=== PATIENT | female | born 1955 | race African-American/Black ===

== ENCOUNTER 2021-11-12 20:43 | Inpatient (IN) | payer OTHER ==
[~2021-11-12] VITALS: Ht 172.7 cm; Wt 109.1 kg
[2021-11-12] MEDS ORDERED: ASPIRIN 81MG TABLET PO ONE (22:30)
[2021-11-12 23:04] LABS: BASOPHILS % 1.4 % (0.0-2.0); EOSINOPHILS % 0.4 % (0.0-5.0); HEMOGLOBIN. 8.1 g/dL (12.0-16.0); MEAN CORPUSCULAR HEMOGLOBIN 28.8 pg (28.0-32.0); MEAN CORPUSCULAR VOLUME 89.3 fL (81.0-99.0); MEAN PLATELET VOLUME 9.4 fl (7.4-10.4); MONOCYTES % 12.7 % (2.0-8.0); NEUTROPHILS % 77.5 % (40.0-76.0); PLATELET 190 x1000/uL (130-400); RED CELL DISTRIBUTION WIDTH 16.3 % (11.6-14.6)
[2021-11-12 23:12] LABS: CLARITY URINE CLEAR (CLEAR); COLOR URINE YELLOW (YELLOW); KETONES URINE NEGATIVE (NEGATIVE); LEUKOCYTE ESTERASE URINE TRACE (NEGATIVE); NITRITE URINE NEGATIVE (NEGATIVE); OCCULT BLOOD URINE 1+ (NEGATIVE); PROTEIN URINE NEGATIVE (NEGATIVE); SPECIFIC GRAVITY URINE 1.013 (1.005-1.030); UROBILINOGEN URINE 0.2 E.U./dL (0.2-1.0)
[2021-11-12 23:14] LABS: CHLORIDE 95 mEq/L (98-107)
[2021-11-13] MEDS ORDERED: CALCIUM GLUCONATE 100MG/ML 10ML VIAL IV NR (01:30)
[2021-11-13] MEDS ORDERED: MAGNESIUM 2 G PREMIX 50 ML IV NR (03:45)
[2021-11-13] MEDS ORDERED: HYDRALAZINE 20MG/ML VIAL IV PRN (07:15)
[2021-11-13] MEDS ORDERED: GUAIFENESIN 200MG/10ML SUGAR FREE UDC PO PRN (07:15)
[2021-11-13] MEDS ORDERED: DOCUSATE SODIUM 100MG CAPSULE PO PRN (07:15)
[2021-11-13] MEDS ORDERED: CLONIDINE 0.1MG TABLET PO PRN (07:15)
[2021-11-13] MEDS ORDERED: HYDROCODONE/ACETAMINOPHEN 5/325MG TABLET PO PRN (07:15)
[2021-11-13] MEDS ORDERED: MORPHINE SULFATE 2 MG/ML CPJ (NOT FOR IM USE) IV PRN (07:15)
[2021-11-13] MEDS ORDERED: MAGNESIUM/ALUMINUM HYDROXIDE/SIMETHICONE 30ML UDC PO PRN (07:15)
[2021-11-13] MEDS ORDERED: IPRATROPIUM/ALBUTEROL 0.5-3(2.5)MG/3ML NEB HHN PRN (07:15)
[2021-11-13] MEDS ORDERED: ONDANSETRON HCL 4MG/2ML INJ IV PRN (07:15)
[2021-11-13] MEDS ORDERED: DIPHENHYDRAMINE 50MG/ML VIAL IV PRN (07:15)
[2021-11-13] MEDS: ENOXAPARIN 30MG/0.3ML SYR SUBCUT SCH ×2 (09:00→18:29)
[2021-11-13] MEDS ORDERED: POTASSIUM CHLORIDE INJ 40 MEQ in DEXT 5% WATER 250 ML IV ONE (10:00)
[2021-11-13] MEDS ORDERED: NALOXONE HCL 0.4MG/ML VIAL IV PRN (13:00)
[2021-11-13 13:15] VITALS: BP 119/62
[2021-11-13] MEDS: ACETAMINOPHEN 325MG TABLET PO PRN ×2 (14:28→21:33)
[2021-11-13] MEDS: SODIUM CHLORIDE 0.9% INJ 3ML FLUSH IVF SCH ×2 (14:42→22:00)
[2021-11-13 16:00] VITALS: BP 135/64
[2021-11-13 17:04] LABS: CREATINE KINASE 125 IU/L (26-192); CREATINE KINASE MB FRACTION < 1.0 ng/mL (0.5-3.6)
[2021-11-13 17:05] LABS: T4 FREE 1.69 ng/dL (0.76-1.46)
[2021-11-13] MEDS ORDERED: ALBUTEROL 6.7GM HFA INHALER ORI SCH (18:00)
[2021-11-13] MEDS: DEXAMETHASONE 4MG TABLET PO SCH (18:30)
[2021-11-13 20:00] VITALS: BP 157/58
[2021-11-13] MEDS: TADALAFIL 20 MG PO SCH (21:00)
[2021-11-14] VITALS: BP 135/64
[2021-11-14 00:06] LABS: CREATINE KINASE 123 IU/L (26-192); CREATINE KINASE MB FRACTION < 1.0 ng/mL (0.5-3.6)
[2021-11-14] MEDS ORDERED: AMIODARONE HCL 900 MG in DEXT 5% WATER 482 ML IV PRN (02:00)
[2021-11-14 04:00] VITALS: BP 127/74
[2021-11-14 05:21] LABS: CHLORIDE 96 mEq/L (98-107)
[2021-11-14 05:58] LABS: HEMATOCRIT. 26.9 % (36.0-48.0); HEMOGLOBIN. 8.6 g/dL (12.0-16.0); MEAN CORPUSCULAR HEMOGLOBIN 28.5 pg (28.0-32.0); MEAN CORPUSCULAR VOLUME 89.4 fL (81.0-99.0); MEAN PLATELET VOLUME 9.7 fl (7.4-10.4); MONOCYTES % 4.9 % (2.0-8.0); NEUTROPHILS % 84.1 % (40.0-76.0); PLATELET 186 x1000/uL (130-400); RED BLOOD CELL COUNT 3.01 mill/uL (4.2-5.4); RED CELL DISTRIBUTION WIDTH 16.3 % (11.6-14.6)
[2021-11-14] MEDS: SODIUM CHLORIDE 0.9% INJ 3ML FLUSH IVF SCH ×3 (06:00→20:49)
[2021-11-14 08:00] VITALS: BP 139/57
[2021-11-14] MEDS ORDERED: AMLO10TA80 PO (08:11)
[2021-11-14] MEDS ORDERED: POTA-205 PO (08:18)
[2021-11-14] MEDS ORDERED: AZAT50TA24 PO (08:18)
[2021-11-14] MEDS ORDERED: LEVO150T8 PO (08:18)
[2021-11-14] MEDS ORDERED: GABA-529 PO (08:18)
[2021-11-14] MEDS ORDERED: METO-539 PO (08:18)
[2021-11-14] MEDS ORDERED: MONT-39 PO (08:18)
[2021-11-14] MEDS ORDERED: BACL-141 PO (08:18)
[2021-11-14] MEDS ORDERED: ATOR40TA70 PO (08:18)
[2021-11-14] MEDS ORDERED: CALC0.253 PO (08:18)
[2021-11-14] MEDS: ENOXAPARIN 30MG/0.3ML SYR SUBCUT SCH ×2 (09:17→17:07)
[2021-11-14] MEDS: DEXAMETHASONE 4MG TABLET PO SCH (09:18)
[2021-11-14] MEDS ORDERED: ATORVASTATIN CALCIUM 40MG TABLET PO SCH (09:53)
[2021-11-14] MEDS ORDERED: *PATIENT'S OWN MEDICATION STORAGE XX SCH (10:30)
[2021-11-14] MEDS: ALBUTEROL 6.7GM HFA INHALER ORI SCH ×3 (11:10→23:12)
[2021-11-14] MEDS: AMLODIPINE 10MG TABLET PO SCH (11:10)
[2021-11-14] MEDS: GABAPENTIN 100MG CAPSULE PO SCH ×3 (11:10→17:08)
[2021-11-14] MEDS: BACLOFEN 10MG TABLET PO SCH ×2 (11:10→17:08)
[2021-11-14] MEDS: LEVOTHYROXINE SODIUM 150MCG TABLET PO SCH (11:10)
[2021-11-14] MEDS: METOPROLOL TARTRATE 50MG TABLET PO SCH ×2 (11:11→20:48)
[2021-11-14] MEDS: MONTELUKAST SODIUM 10MG TABLET PO SCH (11:11)
[2021-11-14] MEDS: CALCITRIOL 0.25MCG CAPSULE PO SCH ×2 (11:11→17:08)
[2021-11-14] MEDS: AZATHIOPRINE 50MG TABLET PO SCH ×2 (11:11→17:07)
[2021-11-14 11:18] LABS: BG BASE EXCESS 10.4 mmol/L (-2.0-2.0); BG CARBOXYHEMOGLOBIN 0.3 % (0.5-1.5); BG DEOXYHEMOGLOBIN 1.1 % (0.0-5.0); BG FRACTION INSPIRED OXYGEN 32; BG HCO3 ACT 37.4 mmol/L (22.0-26.0); BG METHEMOGLOBIN 0.6 % (0.0-1.5); BG OXYGEN SATURATION 98.9 % (92.0-98.5); BG PCO2 67.5 mmHg (35.0-45.0); BG PH 7.361 (7.350-7.450); BG PO2 143.1 mmHg (75.0-100.0); BG SAMPLE SITE RIGHT RADIAL; BG TOTAL HEMOGLOBIN 8.6 g/dL (12.0-18.0); BG VENT MODE NASAL CANNULA
[2021-11-14 12:00] VITALS: BP 146/76
[2021-11-14 16:00] VITALS: BP 138/69
[2021-11-14] MEDS: POTASSIUM CHLORIDE 20MEQ TABLET SR PO SCH (17:07)
[2021-11-14 20:00] VITALS: BP 142/58
[2021-11-14] MEDS: TADALAFIL 20 MG PO SCH (20:48)
[2021-11-15] VITALS: BP_SYST 132; BP_DIAS 50; BP_DIAS 56
[2021-11-15] MEDS: GUAIFENESIN-DM 200MG-20MG/10ML UDC PO PRN (02:26)
[2021-11-15 04:00] VITALS: BP 139/58
[2021-11-15] MEDS: LEVOTHYROXINE SODIUM 150MCG TABLET PO SCH (06:15)
[2021-11-15] MEDS: ALBUTEROL 6.7GM HFA INHALER ORI SCH ×3 (06:15→17:36)
[2021-11-15] MEDS: SODIUM CHLORIDE 0.9% INJ 3ML FLUSH IVF SCH ×3 (06:15→20:20)
[2021-11-15 08:00] VITALS: BP 124/52
[2021-11-15] MEDS: POTASSIUM CHLORIDE 20MEQ TABLET SR PO SCH ×2 (08:58→17:35)
[2021-11-15] MEDS: AZATHIOPRINE 50MG TABLET PO SCH ×2 (08:58→17:35)
[2021-11-15] MEDS: CALCITRIOL 0.25MCG CAPSULE PO SCH ×2 (08:59→17:35)
[2021-11-15] MEDS: MONTELUKAST SODIUM 10MG TABLET PO SCH (08:59)
[2021-11-15] MEDS: GABAPENTIN 100MG CAPSULE PO SCH ×3 (08:59→17:35)
[2021-11-15] MEDS: METOPROLOL TARTRATE 50MG TABLET PO SCH ×2 (08:59→20:19)
[2021-11-15] MEDS: AMLODIPINE 10MG TABLET PO SCH (08:59)
[2021-11-15] MEDS: DEXAMETHASONE 4MG TABLET PO SCH (09:01)
[2021-11-15] MEDS: BACLOFEN 10MG TABLET PO SCH ×2 (09:05→17:35)
[2021-11-15] MEDS: ENOXAPARIN 30MG/0.3ML SYR SUBCUT SCH ×2 (09:05→17:35)
[2021-11-15 12:00] VITALS: BP 114/98
[2021-11-15 16:00] VITALS: BP 130/75
[2021-11-15 20:00] VITALS: BP 141/61
[2021-11-15] MEDS: TADALAFIL 20 MG PO SCH (20:20)
[2021-11-16] VITALS: BP 125/52
[2021-11-16] MEDS: ALBUTEROL 6.7GM HFA INHALER ORI SCH ×4 (01:22→17:53)
[2021-11-16] MEDS: GUAIFENESIN-DM 200MG-20MG/10ML UDC PO PRN (02:28)
[2021-11-16 04:00] VITALS: BP 135/60
[2021-11-16] MEDS: SODIUM CHLORIDE 0.9% INJ 3ML FLUSH IVF SCH ×2 (05:58→12:06)
[2021-11-16] MEDS: LEVOTHYROXINE SODIUM 150MCG TABLET PO SCH (05:58)
[2021-11-16 08:00] VITALS: BP 128/59
[2021-11-16 08:34] LABS: BG BASE EXCESS 7.3 mmol/L (-2.0-2.0); BG CARBOXYHEMOGLOBIN 0.2 % (0.5-1.5); BG FRACTION INSPIRED OXYGEN 26; BG HCO3 ACT 32.5 mmol/L (22.0-26.0); BG METHEMOGLOBIN 0.4 % (0.0-1.5); BG OXYHEMOGLOBIN 96.4 % (94.0-97.0); BG PCO2 49.8 mmHg (35.0-45.0); BG PH 7.432 (7.350-7.450); BG PO2 95.1 mmHg (75.0-100.0); BG SAMPLE SITE RIGHT RADIAL; BG TOTAL HEMOGLOBIN 8.2 g/dL (12.0-18.0); BG VENT MODE NASAL CANNULA
[2021-11-16] MEDS: MONTELUKAST SODIUM 10MG TABLET PO SCH (09:18)
[2021-11-16] MEDS: CALCITRIOL 0.25MCG CAPSULE PO SCH ×2 (09:18→17:52)
[2021-11-16] MEDS: POTASSIUM CHLORIDE 20MEQ TABLET SR PO SCH ×2 (09:18→17:52)
[2021-11-16] MEDS: ENOXAPARIN 30MG/0.3ML SYR SUBCUT SCH ×2 (09:18→17:52)
[2021-11-16] MEDS: DEXAMETHASONE 4MG TABLET PO SCH (09:18)
[2021-11-16] MEDS: GABAPENTIN 100MG CAPSULE PO SCH ×3 (09:19→17:52)
[2021-11-16] MEDS: AMLODIPINE 10MG TABLET PO SCH (09:19)
[2021-11-16] MEDS: BACLOFEN 10MG TABLET PO SCH ×2 (09:19→17:52)
[2021-11-16] MEDS: AZATHIOPRINE 50MG TABLET PO SCH ×2 (09:19→17:52)
[2021-11-16] MEDS: METOPROLOL TARTRATE 50MG TABLET PO SCH (09:20)
[2021-11-16 12:00] VITALS: BP 108/48
[2021-11-16] MEDS ORDERED: AMIODARONE HCL 200 MG TABLET PO SCH (12:00)
[2021-11-16 16:00] VITALS: BP 114/49
[2021-11-16 18:15] VITALS: BP 114/49
== END 2021-11-16 20:06 | disposition home or self-care (01) | DRG 871 ==
LOC: ER 20:43 → MICUSO 11-13 01:44 → 7EST 11-13 12:54
PROVIDERS: ADMIT Internal Medicine; ATTEND Internal Medicine
DX: A41.89 Other specified sepsis (principal); J18.9 Pneumonia, unspecified organism; J96.20 Acute and chronic respiratory failure, unspecified whether with hypoxia or hypercapnia; U07.1 COVID-19; I47.1 Supraventricular tachycardia; J98.11 Atelectasis; I47.2 Ventricular tachycardia; E46 Unspecified protein-calorie malnutrition; D64.9 Anemia, unspecified; E66.9 Obesity, unspecified; R55 Syncope and collapse; E83.42 Hypomagnesemia; E87.6 Hypokalemia; I10 Essential (primary) hypertension; I27.20 Pulmonary hypertension, unspecified; M35.00 Sjogren syndrome, unspecified; Z68.36 Body mass index [BMI] 36.0-36.9, adult
CPT/HCPCS: 36415; 36600; 71045; 80053; 80061; 81003; 82375; 82550; 82553; 82805; 83036; 83735; 83880; 84439; 84443; 84484; 85025; 85379; 87426; 87804; 93005; 93308; 93970; 99291; C9803; J0610; J1650; J3475; J3480; J7060; J7500; J8540